=== PATIENT | female | born 1995 | race Caucasian/White ===

== ENCOUNTER 2018-08-22 21:26 | Emergency (ER) | payer OTHER ==
[~2018-08-22] VITALS: Ht 172.7 cm; Wt 77.7 kg
[2018-08-22 21:32] VITALS: BP 114/73
[2018-08-22] MEDS ORDERED: LIDOCAINE-MPF 1%, 5ML ONE (21:56)
[2018-08-22] MEDS ORDERED: DIPH,PERTUSS(ACELL),TET VAC/PF 0.5 ML IM-VACC ONE ×2 (21:57→22:00)
[2018-08-22] MEDS ORDERED: BUPIVACAINE 0.25% ONE (21:58)
[2018-08-22] MEDS ORDERED: BUPIVACAINE/PF-EPI 0.25% 1:200K SQ ONE (22:00)
[2018-08-22] MEDS ORDERED: LIDOCAINE-MPF 1%, 5ML INFIL ONE (22:00)
[2018-08-22] MEDS ORDERED: BUPIVACAINE 0.25% INFIL ONE (22:00)
--- NOTE | 2018-08-22 22:49 | NUR ---
DC EDUCATION PROVIDED, PT DEMONSTRATES UNDERSTANDING. PT AMBULATED STEADILY TO DC WITH RN AND FRIEND.
== END 2018-08-22 22:50 | disposition home or self-care (01) ==
LOC: EDSEX 21:26 → ED 21:45
DX: M79.641 Pain in right hand (principal); F17.210 Nicotine dependence, cigarettes, uncomplicated
CPT/HCPCS: 64450; 90471; 90715

== ENCOUNTER 2018-08-24 21:39 | Emergency (ER) | payer SELFPAY ==
[~2018-08-24] VITALS: Ht 172.7 cm; Wt 77.7 kg
[2018-08-24 21:47] VITALS: BP 124/53
== END 2018-08-24 22:38 | disposition home or self-care (01) ==
LOC: ED 22:20
DX: L02.413 Cutaneous abscess of right upper limb (principal)
CPT/HCPCS: 10060; 99283

== ENCOUNTER 2018-08-26 15:00 | Emergency (ER) | payer OTHER ==
[~2018-08-26] VITALS: Ht 172.7 cm; Wt 76.0 kg
[2018-08-26 15:03] VITALS: BP 117/76
[2018-08-26] MEDS ORDERED: LIDOCAINE-MPF 1%, 5ML ONE (15:13)
== END 2018-08-26 15:34 | disposition home or self-care (01) ==
LOC: ED 15:20
DX: Z48.01 Encounter for change or removal of surgical wound dressing (principal)
CPT/HCPCS: 99283

== ENCOUNTER 2019-05-30 21:39 | Emergency (ER) | payer SELFPAY ==
[~2019-05-30] VITALS: Ht 170.2 cm; Wt 77.3 kg
[2019-05-30 21:43] VITALS: BP 123/85
[2019-05-30] MEDS ORDERED: KETOROLAC 30 MG/1 ML ONE (22:09)
[2019-05-30] MEDS ORDERED: ACETAMINOPHEN 500 MG TABLET ONE (22:10)
--- NOTE | 2019-05-30 22:15 | NUR ---
MEDS ADMIN PER JUN. PT SITTING ON JOANNE CABRALES.
[2019-05-30] MEDS ORDERED: KETOROLAC 30 MG/1 ML IM ONE (22:30)
[2019-05-30] MEDS ORDERED: ACETAMINOPHEN 500 MG TABLET PO ONE (22:30)
--- NOTE | 2019-05-30 22:51 | NUR ---
ALL RESULTS ARE BACK AT THIS TIME. CHART UP FOR RECHECK.
== END 2019-05-30 23:36 | disposition home or self-care (01) ==
LOC: ED 23:25
DX: S01.511A Laceration without foreign body of lip, initial encounter (principal); Y04.8XXA Assault by other bodily force, initial encounter; F17.200 Nicotine dependence, unspecified, uncomplicated; Y93.89 Activity, other specified; Y92.89 Other specified places as the place of occurrence of the external cause; Y99.8 Other external cause status
CPT/HCPCS: 70486; 96372; 99284; J1885

== ENCOUNTER 2019-07-20 15:37 | Emergency (ER) | payer OTHER ==
[~2019-07-20] VITALS: Ht 172.7 cm; Wt 75.6 kg
[2019-07-20 15:41] VITALS: BP 128/69
[2019-07-20] MEDS ORDERED: LIDOCAINE-MPF 1%, 5ML ONE (15:53)
[2019-07-20] MEDS ORDERED: LIDOCAINE 1%, 10ML INFIL ONE (16:00)
[2019-07-20] MEDS ORDERED: LIDOCAINE-MPF 1%, 5ML INFIL ONE (16:00)
== END 2019-07-20 16:38 | disposition home or self-care (01) ==
LOC: ED 16:23
DX: S91.215A Laceration without foreign body of left lesser toe(s) with damage to nail, initial encounter (principal); F17.200 Nicotine dependence, unspecified, uncomplicated; X58.XXXA Exposure to other specified factors, initial encounter; Y93.89 Activity, other specified; Y92.89 Other specified places as the place of occurrence of the external cause; Y99.0 Civilian activity done for income or pay
CPT/HCPCS: 64450; 99283

== ENCOUNTER 2019-12-28 08:19 | Emergency (ER) | payer OTHER ==
[~2019-12-28] VITALS: Ht 172.7 cm; Wt 74.0 kg
[2019-12-28] MEDS ORDERED: ONDANSETRON 2MG/ML, 2ML ONE (08:57)
[2019-12-28] MEDS ORDERED: MORPHINE SULFATE 4 MG/ML, 1ML ONE (08:57)
[2019-12-28] MEDS: MORPHINE SULFATE 4 MG/ML, 1ML IVPush PRN ×2 (08:58→11:25)
[2019-12-28 08:59] LABS: BASOPHILS # (AUTO) 0.04 x10^3/uL (0-0.1); BASOPHILS % (AUTO) 0 % (0-1); EOSINOPHILS # (AUTO) 0.02 x10^3/uL (0-0.4); EOSINOPHILS % (AUTO) 0 % (1-7); LYMPHOCYTES # (AUTO) 0.93 x10^3/uL (1-3.4); LYMPHOCYTES % (AUTO) 10 % (22-44); MD NO; MEAN CORPUSCULAR HEMOGLOBIN 31.7 pg (27.0-34.8); MEAN PLATELET VOLUME 7.8 fL (7.4-10.4); MONOCYTES # (AUTO) 0.74 x10^3/uL (0.2-0.8); MONOCYTES % (AUTO) 8 % (2-9); NEUTROPHILS # (AUTO) 7.48 x10^3/uL (1.8-6.8); NEUTROPHILS % (AUTO) 81 % (42-75); PLATELET COUNT 254 x10^3/uL (130-400); RED BLOOD COUNT 5.18 x10^6/uL (3.82-5.3); RED CELL DISTRIBUTION WIDTH 13.7 % (9.6-15.2)
[2019-12-28] MEDS ORDERED: ONDANSETRON 2MG/ML, 2ML IVPush ONE (09:00)
[2019-12-28] MEDS ORDERED: SODIUM CHLORIDE 0.9% 1,000ML IVBOLUS ONE (09:00)
[2019-12-28] MEDS ORDERED: SODIUM CHLORIDE FLUSH 10ML SYR IVF ONE (09:00)
--- NOTE | 2019-12-28 09:03 | NUR ---
"I WAS THROWING UP THIS MORNING. WHEN I WOULD GET UP MY HEAD WOULD SPIN. IT'S BEEN THIS WAY FOR ABOUT THREE DAYS." PT IN BED IN GOWN WITH CONT SPO2, BP Q 30 MIN, 20 G IV STARTED IN LEFT AC. WENT OVER PLAN OF CARE FROM ORDER LIST, AGREES TO POC. CALL LIGHT IN REACH. URINE WALKED TO LAB.
[2019-12-28 09:11] LABS: ALANINE AMINOTRANSFERASE 27 U/L (12-78); ALBUMIN 4.1 g/dL (3.4-5.0); ANION GAP 9 mmol/L (5-15); CALCIUM 9.4 mg/dL (8.5-10.1); CHLORIDE 106 mmol/L (98-107); CREATININE 0.85 mg/dL (0.55-1.02)
[2019-12-28 09:16] LABS: ALKALINE PHOSPHATASE 79 U/L (45-117); TOTAL PROTEIN 7.8 g/dL (6.4-8.2)
[2019-12-28 09:21] LABS: MICROSCOPIC INDICATED
[2019-12-28] MEDS ORDERED: MAALOX/HYOSCYAMINE/LIDOCAINE 45 ML BTL PO ONE (09:30)
[2019-12-28] MEDS ORDERED: MAALOX/HYOSCYAMINE/LIDOCAINE 45 ML BTL ONE (09:35)
[2019-12-28 11:15] VITALS: BP 115/60
== END 2019-12-28 11:20 | disposition home or self-care (01) ==
LOC: ED 09:12
DX: K29.20 Alcoholic gastritis without bleeding (principal); R00.0 Tachycardia, unspecified; R42 Dizziness and giddiness; Z87.891 Personal history of nicotine dependence
CPT/HCPCS: 36415; 80053; 81001; 83690; 84703; 85025; 96361; 96374; 99283; J2405; J7030; J2270

== ENCOUNTER 2020-11-06 13:11 | Emergency (ER) | payer OTHER ==
[~2020-11-06] VITALS: Ht 172.7 cm; Wt 70.4 kg
[2020-11-06 13:14] VITALS: BP 113/72
[2020-11-06] MEDS ORDERED: LIDOCAINE-MPF 1%, 5ML ONE (13:39)
--- NOTE | 2020-11-06 13:43 | NUR ---
ABDULAZIZ PULLED FOR PROVIDER ADMIN
[2020-11-06] MEDS ORDERED: LIDOCAINE-MPF 1%, 5ML INFIL ONE (14:00)
[2020-11-06] MEDS ORDERED: NEOSPORIN OINT. PKT 1 PACKET ONE (14:17)
== END 2020-11-06 14:47 | disposition home or self-care (01) ==
LOC: ED 14:41
DX: S91.331A Puncture wound without foreign body, right foot, initial encounter (principal); W22.8XXA Striking against or struck by other objects, initial encounter; Y93.89 Activity, other specified; Y92.69 Other specified industrial and construction area as the place of occurrence of the external cause; Y99.0 Civilian activity done for income or pay
CPT/HCPCS: 10060; 99283